=== PATIENT | male | born 1975 | race Caucasian/White ===

== ENCOUNTER 2016-08-06 14:23 | Emergency (ER) | payer OTHER ==
[~2016-08-06] VITALS: Ht 175.3 cm; Wt 154.6 kg
[~2016-08-06 14:23] MED LIST: CIPR500T89 PO; FLAG500T PO
[2016-08-06] MEDS ORDERED: NS 500 ML IV ONE (15:30)
[2016-08-06] MEDS ORDERED: MORPHINE 2 MG/ML 1ML SYRINGE IV PRN (15:30)
[2016-08-06] MEDS ORDERED: ONDANSETRON 4MG/2ML VIAL (J2405) IV ONE (15:30)
[2016-08-06] MEDS ORDERED: GASTROGRAFIN SOLUTION 30ML PO ONE (15:45)
[2016-08-06] MEDS ORDERED: GASTROGRAFIN SOLUTION 30ML (Q9963) As Ordered ONE (15:45)
[2016-08-06 15:52] LABS: BASO % 0.2 % (0.0-1.0); EOS # 0.2 K/mm3 (0.0-0.50); EOS % 1.2 % (0.0-3.0); LARGE UNSTAINED CELL # 0.1 K/mm3 (0.0-0.4); LARGE UNSTAINED CELL % 0.8 % (0.0-4.0); LYMPH # 1.4 K/mm3 (1.5-4.5); LYMPH % 10.5 % (24.0-44.0); MEAN CORPUSCULAR HEMOGLOBIN 31.1 pg (27.0-33.0); MEAN CORPUSCULAR HGB CONC 35.2 g/dl (32.0-36.5); MEAN CORPUSCULAR VOLUME 88.4 fl (80.0-96.0); MONO # 0.6 K/mm3 (0.0-0.8); MONO % 4.5 % (0.0-5.0); NEUTROPHILS # 10.5 K/mm3 (1.8-7.7); NEUTROPHILS % 82.7 % (36.0-66.0); PLATELET COUNT, AUTOMATED 152 k/mm3 (150-450); RED CELL DISTRIBUTION WIDTH 12.9 % (11.5-14.5); WHITE BLOOD COUNT 12.6 K/mm3 (4.0-10.0)
[2016-08-06 15:58] LABS: INR 1.04
[2016-08-06] MEDS ORDERED: GASTROGRAFIN SOLUTION 30ML (Q9963) PO ONE (16:15)
[2016-08-06 16:36] LABS: ALBUMIN 3.8 GM/DL (3.2-5.2); ALBUMIN/GLOBULIN RATIO 1.06 (1.00-1.93); ALKALINE PHOSPHATASE 74 U/L (45-117); ALT/SGPT 36 U/L (12-78); ANION GAP 8 MEQ/L (8-16); AST/SGOT 23 U/L (15-37); BILIRUBIN,DIRECT 0.1 MG/DL (0.0-0.2); BILIRUBIN,TOTAL 0.4 MG/DL (0.2-1.0); BLOOD UREA NITROGEN 9 MG/DL (7-18); CALCIUM LEVEL 9.2 MG/DL (8.5-10.1); CARBON DIOXIDE LEVEL 30 MEQ/L (21-32); CHLORIDE LEVEL 103 MEQ/L (98-107); CREATININE FOR GFR 0.81 MG/DL (0.70-1.30); GLOMERULAR FILTRATION RATE > 60.0 (>60); GLUCOSE, FASTING 122 MG/DL (70-105); POTASSIUM SERUM 4.1 MEQ/L (3.5-5.1); SODIUM LEVEL 141 MEQ/L (136-145); TOTAL PROTEIN 7.4 GM/DL (6.4-8.2)
--- NOTE | 2016-08-06 17:52 | REP ---
CT ABDOMEN AND PELVIS WITH BY MOUTH CONTRAST: HISTORY: Diverticulitis. COMPARISON: 02/02/2013 The liver, gallbladder, pancreas, spleen, adrenal glands and kidneys are normal in appearance. There is no mass, adenopathy or free fluid. The visualized lungs are clear. Diverticula are present in the descending colon. IMPRESSION: Diverticulosis. CT PELVIS: The prostate gland and urinary bladder are normal in appearance. Diverticula are present in the descending and sigmoid colon. Stranding is present in the fat surrounding the sigmoid colon. This is consistent with diverticulitis. There is no mass, adenopathy or free fluid. IMPRESSION: Sigmoid colon diverticulitis. Signed by Howie Max MD 08/06/2016 06:03 P
[2016-08-06] MEDS ORDERED: PERC5TAB6 PO (18:08)
[2016-08-06] MEDS ORDERED: FLAG500T PO (18:08)
[2016-08-06] MEDS ORDERED: CIPR500T89 PO (18:08)
[2016-08-06 18:20] VITALS: BP 143/78
[2016-08-06] MEDS ORDERED: ACETAMINOPHEN 325 MG TAB As Ordered ONE (18:22)
[2016-08-06] MEDS ORDERED: ACETAMINOPHEN 325 MG TAB PO ONE (18:30)
== END 2016-08-06 18:27 | disposition home or self-care (01) ==
LOC: M ED 15:57
DX: K57.30 Diverticulosis of large intestine without perforation or abscess without bleeding (principal)
CPT/HCPCS: 74176; 80048; 80076; 81001; 83690; 85025; 85610; 96374; 96375; 99283; J2405; Q9963

== ENCOUNTER → 2020-06-21 | Outpatient (CLI) | payer BC ==
[~2020-06-21] MED LIST changes: +CIPR-249 PO; +PERC5TAB12 PO
--- NOTE | 2020-06-22 12:43 | SLEEPCENT ---
NOCTURNAL POLYSOMNOGRAPHY CPAP TITRATION DATE: 06/21/2020 ORDERED BY: PAUL Arvizu Nocturnal polysomnography was performed for retitration of pressure therapy in this patient with a history of obstructive sleep apnea syndrome. For testing a ResMed AirFit F20 full face mask of medium size was used, 8 cm of water pressure was initially applied to the circuit, and the lights were extinguished. 8 hours and 59 minutes of data were reviewed. There were 551 minutes of sleep identified. Sleep latency was normal at 12.5 minutes. REM latency was normal at 65 minutes. Sleep architecture was good with four REM cycles. Overall sleep efficiency was 95.7%. The electrocardiogram showed a sinus rhythm with an average heart rate of 48 beats per minute; rate range 30 to 60. EEG showed reasonably normal waveforms for wake and sleep. Respiratory events were fully palliated with CPAP at a pressure of 12. There was some minor limb activity appreciated. Limb movement arousal index on this occasion was 3.2. IMPRESSION: 1. Obstructive sleep apnea syndrome (G47.33). 2. Sinus bradycardia. RECOMMENDATION: Nightly use of pressure therapy 12 cm of water.
== END ==
LOC: M SLEEP 20:00
PROVIDERS: ATTEND Physician Assistant
DX: G47.33 Obstructive sleep apnea (adult) (pediatric) (principal)

== ENCOUNTER → 2024-08-27 | Outpatient (REF) | payer BC | LOC: M LAB REF 13:24 | PROVIDERS: ATTEND Physician Assistant | DX: M25.50 Pain in unspecified joint (principal) ==